=== PATIENT | male | born 1955 ===

== ENCOUNTER 2021-12-15 08:34 | Outpatient (CLI) | payer MEDICARE, BC | END 2021-12-15 08:35 | disposition home or self-care (01) | LOC: MRI 08:34 | PROVIDERS: ATTEND Orthopaedic Surgery | DX: M51.16 Intervertebral disc disorders with radiculopathy, lumbar region (principal); M48.061 Spinal stenosis, lumbar region without neurogenic claudication | CPT/HCPCS: 72148 ==